=== PATIENT | male | born 1985 | race African-American/Black ===

== ENCOUNTER 2025-02-08 10:43 | Emergency (ER) | payer SELFPAY ==
[~2025-02-08] VITALS: Ht 175.3 cm; Wt 90.0 kg
[2025-02-08 11:08] VITALS: O2SAT 100
[2025-02-08] MEDS: LIDOCAINE 5% PATCH TOP SCH (13:34)
[2025-02-08] MEDS: KETOROLAC 15MG/ML VIAL IM ONE (13:34)
[2025-02-08] MEDS ORDERED: LIDO700A30 TP (14:38)
[2025-02-08] MEDS ORDERED: IBUP-2028 MT (14:38)
[2025-02-08 15:40] VITALS: BP 128/92; PULSE 95; RESP 19; TEMP 36.3; O2SAT 99
== END 2025-02-08 15:41 | disposition home or self-care (01) ==
LOC: ER 10:43
DX: M54.50 Low back pain, unspecified (principal); Z79.899 Other long term (current) drug therapy
CPT/HCPCS: 99283; 72100; 96372; J1885